=== PATIENT | female | born 1955 | race Native Hawaiian/Other Pacific Islander ===

== ENCOUNTER 2018-05-14 21:27 | Emergency (ER) | payer OTHER ==
[~2018-05-14] VITALS: Ht 170.2 cm; Wt 86.7 kg
[2018-05-14 22:37] LABS: PARTIAL THROMBOPLASTIN TIME 24.1 SECONDS (24.5-33.6)
[2018-05-14 22:46] VITALS: BP 147/72; TEMP 97.9
== END 2018-05-14 22:50 | disposition home or self-care (01) ==
LOC: ED 21:27
PROVIDERS: Family Medicine
PROC: 0HQFXZZ Repair Right Hand Skin, External Approach (ICD-10-PCS; principal; 2018-05-14)
DX: S61.210A Laceration without foreign body of right index finger without damage to nail, initial encounter (principal); D68.2 Hereditary deficiency of other clotting factors; W45.8XXA Other foreign body or object entering through skin, initial encounter; Y92.098 Other place in other non-institutional residence as the place of occurrence of the external cause
CPT/HCPCS: 36415; 85610; 85730; 90471; 90715; 99283

== ENCOUNTER 2023-03-03 10:21 | Outpatient (CLI) | payer OTHER | END 2023-03-03 18:58 | disposition home or self-care (01) | LOC: RAD 10:21 | PROVIDERS: ATTEND Internal Medicine | DX: M25.572 Pain in left ankle and joints of left foot (principal); R22.42 Localized swelling, mass and lump, left lower limb ==

== ENCOUNTER 2023-06-03 12:24 | Outpatient (CLI) | payer OTHER | END 2023-06-03 21:04 | disposition home or self-care (01) | LOC: CT 12:24 | PROVIDERS: ATTEND Internal Medicine | DX: R51.9 Headache, unspecified (principal); D68.8 Other specified coagulation defects; Z86.73 Personal history of transient ischemic attack (TIA), and cerebral infarction without residual deficits; E78.49 Other hyperlipidemia; D72.818 Other decreased white blood cell count ==

== ENCOUNTER 2023-12-23 11:09 | Outpatient (CLI) | payer OTHER | END 2023-12-23 19:04 | disposition home or self-care (01) | LOC: RAD 11:09 | PROVIDERS: ATTEND Internal Medicine | DX: D68.4 Acquired coagulation factor deficiency (principal); Z86.718 Personal history of other venous thrombosis and embolism ==

== ENCOUNTER 2023-12-23 11:13 | Outpatient (CLI) | payer OTHER | END 2023-12-23 19:04 | disposition home or self-care (01) | LOC: RAD 11:13 | PROVIDERS: ATTEND Internal Medicine | DX: M54.40 Lumbago with sciatica, unspecified side (principal) ==